=== PATIENT | female | born 1945 | race Caucasian/White ===

== ENCOUNTER → 2017-06-04 | Outpatient (CLI) | payer MEDICARE ==
[~2017-06-04] MED LIST: ALPR.25 PO; ASPI1TAB69 PO; ESTR42.5V VAGINAL; LANTUS2P SQ; METO25TA3 PO; NEXI40CA PO; NOVOINJ3 SQ
--- NOTE | 2017-06-05 08:50 | RSPPFT ---
DATE OF PROCEDURE: 06/04/17 COMMENTS: VOLUMES DYNAMIC: FVC and FEV1 mildly reduced. STATIC: TLC mildly reduced; FRC and RV normal. FLOWS: FEV1% normal; FEF 25-75 mildly reduced. DIFFUSION: Moderately reduced. FLOW VOLUME LOOP: Restrictive configuration. IMPRESSION: Mild restrictive ventilatory defect with a moderate reduction in diffusion and no significant airways obstruction. There is no improvement post-bronchodilator. Airways resistance is increased.
== END ==
LOC: HRSP 13:07
PROVIDERS: ATTEND Internal Medicine
DX: J44.9 Chronic obstructive pulmonary disease, unspecified (principal)
CPT/HCPCS: 94060; 94620; 94726; 94729